=== PATIENT | female | born 1930 | race Caucasian/White ===

== ENCOUNTER 2016-04-06 07:15 | Day surgery (SDC) | payer MEDICARE, OTHER ==
[2016-04-06] MEDS ORDERED: KETOROLAC 0.45% OPHTH DROPS OPTH ONE (07:45)
[2016-04-06] MEDS ORDERED: CYCLOPENTOLATE 1% OPHTH DROPS 2 ML OPTH ONE (07:45)
[2016-04-06] MEDS ORDERED: TROPICAMIDE 1% OPHTH 2 ML DROPS OPTH ONE (07:45)
[2016-04-06] MEDS ORDERED: LACTATED RINGERS 500 ML IV ONE (07:47)
[2016-04-06] MEDS ORDERED: MIDAZOLAM 2 MG/2 ML VIAL IVP ONE (08:30)
[2016-04-06] MEDS ORDERED: CHONDR SULF/HYALURONATE SYRINGE IO ONE (08:33)
[2016-04-06] MEDS ORDERED: levoFLOXacin 0.5% OPHTH DROPS 5 ML OPTH ONE (08:33)
[2016-04-06] MEDS ORDERED: BSS/LIDOCAINE/EPINEPHRINE 1 ML SYRINGE IO ONE ×2 (08:33)
[2016-04-06] MEDS ORDERED: PROPARACAINE 0.5% OPHTH DROPS 15 ML OPTH ONE (08:33)
[2016-04-06] MEDS ORDERED: EPINEPHrine 1 MG/ML AMP IO ONE (08:33)
[2016-04-06] MEDS ORDERED: BRIMONIDINE 0.2% OPHTH DROPS 5 ML OPTH ONE (08:33)
[2016-04-06] MEDS ORDERED: NEOMYCIN/POLYMYX/DEXAMETH OPHTH OINT OPTH ONE (08:33)
== END 2016-04-06 07:16 | disposition home or self-care (01) ==
PROC: 08RJ3JZ Replacement of Right Lens with Synthetic Substitute, Percutaneous Approach (ICD-10-PCS; principal; 2016-04-06 08:25)
DX: H25.11 Age-related nuclear cataract, right eye (principal); I50.9 Heart failure, unspecified; I10 Essential (primary) hypertension; K21.9 Gastro-esophageal reflux disease without esophagitis
CPT/HCPCS: 66984; V2632

== ENCOUNTER 2016-04-27 06:19 | Day surgery (SDC) | payer MEDICARE, OTHER ==
[2016-04-27] MEDS ORDERED: PROPARACAINE 0.5% OPHTH DROPS 15 ML OPTH ONE ×2 (07:15→07:45)
[2016-04-27] MEDS ORDERED: EPINEPHrine 1 MG/ML AMP IO ONE ×2 (07:16→07:45)
[2016-04-27] MEDS ORDERED: NEOMYCIN/POLYMYX/DEXAMETH OPHTH OINT OPTH ONE ×2 (07:16→07:45)
[2016-04-27] MEDS ORDERED: BRIMONIDINE 0.2% OPHTH DROPS 5 ML OPTH ONE ×2 (07:16→07:45)
[2016-04-27] MEDS ORDERED: levoFLOXacin 0.5% OPHTH DROPS 5 ML LEFTEYE ONE ×2 (07:17→07:45)
[2016-04-27] MEDS ORDERED: BSS/LIDOCAINE/EPINEPHRINE 1 ML SYRINGE IO ONE ×2 (07:18→07:45)
[2016-04-27] MEDS ORDERED: CHONDR SULF/HYALURONATE SYRINGE IO ONE ×2 (07:18→07:45)
[2016-04-27] MEDS ORDERED: LACTATED RINGERS 1,000 ML IV ONE (07:29)
[2016-04-27] MEDS ORDERED: LIDOCAINE-MPF 2% 5 ML VIAL IM ONE (07:45)
[2016-04-27] MEDS ORDERED: PROPOFOL 200 MG/20 ML VIAL IVP ONE (07:45)
[2016-04-27] MEDS ORDERED: MIDAZOLAM 2 MG/2 ML VIAL IVP ONE (07:45)
== END 2016-04-27 06:20 | disposition home or self-care (01) ==
PROC: 08RK3JZ Replacement of Left Lens with Synthetic Substitute, Percutaneous Approach (ICD-10-PCS; principal; 2016-04-27 07:30)
DX: H25.12 Age-related nuclear cataract, left eye (principal); I10 Essential (primary) hypertension; E03.9 Hypothyroidism, unspecified; I48.91 Unspecified atrial fibrillation
CPT/HCPCS: 66984; J7120; V2632

== ENCOUNTER 2016-07-28 08:40 | Outpatient (CLI) | payer MEDICARE, OTHER ==
--- NOTE | 2016-07-29 10:50 | DEXA Report ---
DEXA SCAN: 07/28/2016 CLINICAL HISTORY: Postmenopausal with osteoporosis. TECHNIQUE: Dual energy x-ray absorptiometry (DXA) was performed on a [employer] system. Regions measured are the AP spine, femoral neck, and, if needed, forearm. COMPARISON: None. In accordance with the International Society for Clinical Densitometry (ISCD) guidelines, data from previous exams may be reanalyzed using current recommendations and techniques. This is done to allow a more accurate basis for comparison with the current study. FINDINGS: Minimal osteopenia is noted according to World Health Organization guidelines. The data for the lumbar spine is as follows: REGION BMD (g/cm/cm) T-SCORE Z-SCORE L1 1.015 -1.0 0.6 L2 1.182 -0.1 1.4 L3 1.382 1.5 3.1 L4 1.182 -0.2 1.4 TOTAL 1.199 0.2 1.7 NOTE: All evaluable vertebrae are used for classification. The data for the hip is as follows: REGION BMD (g/cm/cm) T-SCORE Z-SCORE Neck 0.937 -0.7 1.4 TOTAL 0.873 -1.1 1.0 NOTE: The femoral neck or total proximal femur, whichever is lowest, is used for classification. IMPRESSION: THE WHO CLASSIFICATION BASED ON THE INTERNATIONAL REFERENCE STANDARD IS MINIMAL OSTEOPENIA. THE FRACTURE RISK IS SLIGHTLY INCREASED. RECOMMENDATION: Patients with diagnosis of osteoporosis or osteopenia should have regular bone mineral density assessment. For those eligible for Medicare, routine testing is allowed once every 2 years. Testing frequency can be increased for patients who have rapidly progressing disease or for those who are receiving medical therapy to restore bone mass. COMMENT: World Health Organization (WHO) definitions for osteoporosis and osteopenia: NORMAL BMD: T-score at -1.0 or higher, fracture risk is low. OSTEOPENIA BMD: T-score between -1.0 and -2.5, fracture risk is increased. OSTEOPOROSIS BMD: T-score at -2.5 or lower, fracture risk high. National Osteoporosis Foundation recommends: 1. Obtain adequate dietary calcium (at least 1200 mg per day) and vitamin D (400 -800 international units per day). 2. Participate, as appropriate, in regular weightbearing and muscle- strengthening exercise. 3. Avoid tobacco use and reduce alcohol and caffeine intake. 4. For more detailed information see the website at www.NOF.org. MTDD
== END 2016-07-28 08:41 | disposition home or self-care (01) ==
LOC: DI 08:40
PROVIDERS: ATTEND Internal Medicine
DX: M85.88 Other specified disorders of bone density and structure, other site (principal)
CPT/HCPCS: 77080

== ENCOUNTER 2016-07-28 08:40 | Outpatient (CLI) | payer MEDICARE, OTHER ==
--- NOTE | 2016-08-02 16:54 | Mammography Report ---
DIGITAL SCREENING MAMMOGRAM: 07/28/2016 CLINICAL INDICATION: An 86-year-old for screening. COMPARISON: 06/2015, 02/2014, 10/2011, 10/2010, 09/2009, 09/2008, 07/2007. TECHNIQUE: Routine CC and MLO projections were obtained of the breasts. FINDINGS: The breasts again demonstrate scattered fibroglandular densities bilaterally. Small circu mscribed nodules in the right retroareolar breast are stable. A few punctate, typically benign calci fications are present. No suspicious masses, clustered microcalcifications, or regions of architectu ral distortion are identified. IMPRESSION: BENIGN FINDINGS. RECOMMENDATION: Routine annual screening unless otherwise clinically indicated. BI-RADS category 2, benign findings. STANDARD QUALIFYING STATEMENTS 1. This examination was reviewed with the aid of Computer-Aided Detection (CAD). 2. A negative or benign imaging report should not delay biopsy if clinically suspicious findings are present. Consider surgical consultation if warranted. More than 5% of cancers are not identified by i maging. 3. Dense breasts may obscure an underlying neoplasm. JOB #: [id number] EXT JOB #:[id number]
== END 2016-07-28 08:41 | disposition home or self-care (01) ==
LOC: DI 08:40
PROVIDERS: ATTEND Internal Medicine
DX: Z12.31 Encounter for screening mammogram for malignant neoplasm of breast (principal)
CPT/HCPCS: 77067

== ENCOUNTER 2016-11-03 14:15 | Outpatient (CLI) | payer MEDICARE, OTHER ==
--- NOTE | 2016-11-03 18:57 | XRAY Report ---
FOUR-VIEW LEFT WRIST: 11/03/2016 CLINICAL INDICATION: Sprain, pain. FINDINGS: AP, lateral, oblique, scaphoid views of the left wrist demonstrate moderate osteoarthritis , with chondrocalcinosis. There is sideplate and screw fixation of a previous fracture of the distal radial shaft. No acute fracture or dislocation is seen. No hardware complication is appreciated. IMPRESSION: OSTEOARTHRITIS. PREVIOUS ORIF. NO EVIDENCE OF ACUTE FRACTURE. JOB #: [id number] EXT JOB #:[id number]
--- NOTE | 2016-11-03 18:58 | XRAY Report ---
THREE-VIEW LEFT KNEE: 11/03/2016 CLINICAL INDICATION: Pain. FINDINGS: AP, lateral, sunrise views of the left knee demonstrate a left knee replacement in place. There is no evidence f acute fracture or dislocation. No hardware complication is evident. No effu haydee is seen. IMPRESSION: LEFT KNEE REPLACEMENT. NO EVIDENCE OF FRACTURE OR HARDWARE COMPLICATION. JOB #: [id number] EXT JOB #:[id number]
== END 2016-11-03 14:16 | disposition home or self-care (01) ==
LOC: DI.N 14:15
PROVIDERS: ATTEND Internal Medicine
DX: S83.92XA Sprain of unspecified site of left knee, initial encounter (principal); S63.502A Unspecified sprain of left wrist, initial encounter; Z96.652 Presence of left artificial knee joint; M19.032 Primary osteoarthritis, left wrist

== ENCOUNTER 2017-04-27 12:49 | Emergency (ER) | payer MEDICARE, OTHER ==
[2017-04-27 12:59] VITALS: BP 140/72
[2017-04-27] MEDS ORDERED: TETANUS/DIPHTHERIA/PERTUSSIS 0.5 ML SYRINGE IM ONE (13:10)
--- NOTE | 2017-04-27 13:11 | ED Physician Documentation ---
History of Present Illness - Stated complaint Stated Complaint: MOUTH LAC - Chief complaint Chief Complaint: Heent - History obtained from History obtained from: Patient - History of Present Illness Timing: Other (Slip and fall on the ice directly forward, she bit her lip and she has an abrasion on her nose and has a headache, no loose teeth, tetanus is unknown. She is anticoagulated.) Review of Systems Constitutional: reports: Reviewed and negative Nose: denies: Rhinorrhea / runny nose, Congestion Throat: reports: Dental pain / toothache. 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 - Present Medications Home Medications: Ambulatory Orders Medication Instructions Recorded Confirmed Alendronate [Fosamax] 70 mg PO Q7D 08/31/12 04/27/15 Atenolol 50 mg PO BID 08/31/12 04/27/16 Estradiol [Estrace] 1 mg PO DAILY 08/31/12 04/27/16 Levothyroxine [Synthroid] 75 mcg ORAL DAILY 08/31/12 04/27/16 Simvastatin [Zocor] 20 mg PO DAILY 08/31/12 04/27/16 Amlodipine Besylate 5 mg PO BID 06/20/13 04/27/15 Buspirone HCl 7.5 mg PO DAILY 06/20/13 04/27/15 PARoxetine [Paxil] 20 mg PO DAILY 06/20/13 04/27/16 Famotidine [Pepcid] 1 tab PO DAILY 04/27/15 04/27/16 Furosemide [Lasix] 1 tab PO DAILY 04/27/15 04/27/16 Montelukast [Singulair] 1 tab PO DAILY 04/27/15 04/27/16 Potassium Chloride 1 tab PO DAILY 04/27/15 04/27/16 Warfarin [Coumadin] 1 tab PO DAILY 04/27/15 04/27/16 Erythromycin Base [Erythromycin] 500 mg PO TID #9 tablet 04/27/17 - Allergies Allergies/Adverse Reactions: Allergies Allergy/AdvReac Type Severity Reaction Status Date / Time amoxicillin trihydrate * Allergy Severe Cramps Verified 04/27/17 12:59 [From Augmentin] potassium clavulanate * Allergy Severe Cramps Verified 04/27/17 12:59 [From Augmentin] - Social History Does the pt smoke?: No Smoking Status: Never smoker Does the pt drink ETOH?: No Does the pt have substance abuse?: No - Immunizations Immunizations are current?: Yes - POLST Patient has POLST: No PD ED PE NORMAL - Vitals Vital signs reviewed: Yes - General General: Alert and oriented X 3, No acute distress - HEENT HEENT: PERRL, EOMI, Other (She is a small laceration of the lower lip, both the outside and the inside, hard to say if it is through and through because it only measures a few millimeters in length. There are no loose teeth. 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 Eye Opening: Spontaneous Motor: Obeys Commands Verbal: Oriented GCS Score: 15 - Psych Psych: Normal mood, Normal affect Results - Vitals Vitals: Vital Signs - 24 hr 04/27/17 12:54 Temperature 36.2 C L Heart Rate 68 Respiratory 16 Rate Blood Pressure 140/72 H O2 Saturation 97 Oxygen O2 Source Room air - Labs Labs: Laboratory Tests 04/27/17 13:48 Whole Blood INR 3.2 H - Rads (name of study) CT HEad Radiology: EMP read contemporaneously (NAD) PD MEDICAL DECISION MAKING - ED course ED course: 86-year-old woman with low mechanism mechanical fall, she has an abrasion on the inner lip and the outer lip which might be a through and through but does not need specific intervention but I will put her on a couple days of antibiotics. Noting penicillin allergy. Tetanus was updated. She required only Tylenol for pain medication. Head CT was negative, INR was slightly supratherapeutic and was advised that she skip her dose tonight. Departure - Departure Disposition: 01 Home, Self Care Clinical Impression: Supratherapeutic INR Head injury Qualifiers: Encounter type: initial encounter Qualified Code(s): S09.90XA - Unspecified injury of head, initial encounter Condition: Good Record reviewed to determine appropriate education?: Yes Instructions: ED Head Injury Closed Prescriptions: Erythromycin Base [Erythromycin] 500 mg PO TID #9 tablet Comments: Skip your blood thinner tonight because her INR is 3.2. Get your level checked again on Monday as it may ride high while on antibiotics. Come back for any signs of infection which would include: Redness, swelling, drainage, increased pain, or fevers. Call your doctor to arrange a follow-up appointment, make the next available appointment. In the interim, return anytime if worse or if new symptoms develop. Your blood pressure was elevated today on check into the emergency department. This does not mean that you have hypertension, it is a common phenomenon to come to the emergency department and have elevated blood pressure. I recommend that you see your primary care physician within the week to have it rechecked when you are feeling better.
[2017-04-27] MEDS ORDERED: ACETAMINOPHEN 500 MG TABLET PO STA (13:28)
--- NOTE | 2017-04-27 13:49 | CT Report ---
EXAM: CT HEAD EXAM DATE: 04/27/2017 01:19 PM. CLINICAL HISTORY: Head inj, anticoagulated. COMPARISON: 07/23/2012. TECHNIQUE: Multiaxial CT images were obtained from the foramen magnum to the vertex. Reformats: Coron al. IV contrast: None. In accordance with CT protocol optimization, one or more of the following dose reduction techniques w ere utilized for this exam: automated exposure control, adjustment of mA and/or KV based on patient s ize, or use of iterative reconstructive technique. FINDINGS: Parenchyma: No intraparenchymal hemorrhage. No evidence of mass, midline shift, or CT findings of inf arction. Zamudio-white differentiation is distinct. Scattered patchy hypoattenuation in the cerebral whi te matter is most in keeping with chronic microvascular ischemia. Extraaxial Spaces: Normal for age. No subdural or epidural collections identified. Ventricles: Normal in size and position. Sinuses and Orbits: Imaged paranasal sinuses, orbits, and mastoids show no significant abnormality. Bones: No evidence of fracture or calvarial defect. Other: None. IMPRESSION: No acute intracranial abnormality. [facility] Referring Provider Line: [phone] SITE ID: [id number]
== END 2017-04-27 14:13 | disposition home or self-care (01) ==
LOC: ED 12:49
DX: S09.90XA Unspecified injury of head, initial encounter (principal); W00.0XXA Fall on same level due to ice and snow, initial encounter; I11.0 Hypertensive heart disease with heart failure; I50.9 Heart failure, unspecified; E03.9 Hypothyroidism, unspecified; I48.91 Unspecified atrial fibrillation; Z23 Encounter for immunization; Z79.01 Long term (current) use of anticoagulants; Z96.659 Presence of unspecified artificial knee joint
CPT/HCPCS: 70450; 85610; 90471; 90715; 99283; A9270

== ENCOUNTER 2017-08-09 10:19 | Outpatient (CLI) | payer MEDICARE, OTHER ==
--- NOTE | 2017-08-09 17:04 | XRAY Report ---
BILATERAL HANDS: 08/09/2017 HISTORY: Hand pain. TECHNIQUE: Three views each hand. LEFT HAND: Findings: Generalized bony demineralization. Scattered minor degenerative changes of the finger interphalangeal joints. Old trauma versus accessory ossicle along the radial base fifth proximal phalanx. No acute fracture is seen. Mild early first metacarpocarpal degenerative change. Post-surgical changes distal left radius. IMPRESSION: SCATTERED DEGENERATIVE CHANGES LEFT HAND WITH POSSIBLE OLD TRAUMA LEFT FIFTH PROXIMAL PHALANX. NO ACUTE FINDING. RIGHT HAND: FINDINGS: Bony demineralization. Scattered minimal degenerative changes of the fingers and first metacarpocarpal degenerative change.. Calcification adjacent to the third greater than fifth metacarpophalangeal articulations, likely degenerative. No evidence of fracture or malalignment. IMPRESSION: DEGENERATIVE CHANGES RIGHT HAND WITHOUT SUPERIMPOSED ACUTE FINDINGS. TD: 08/09/2017 15:21 DAQUAN
--- NOTE | 2017-08-09 17:07 | XRAY Report ---
BILATERAL WRISTS: 08/09/2017 HISTORY: Pain. COMPARISON: Left wrist 11/03/2016. TECHNIQUE: Four views each wrist. FINDINGS LEFT WRIST: Status post ORIF left radius. Degenerative change first left metacarpocarpal, triscaphe, and radiocarpal articulations. Scattered chondrocalcinosis is present. Overall, the findings have not changed compared with 11/03/2016. IMPRESSION: STABLE LEFT WRIST DEGENERATIVE CHANGES COMPARED WITH 11/03/2016. NO SUPERIMPOSED ACUTE FINDINGS. REMOTE DISTAL LEFT RADIUS ORIF. FINDINGS RIGHT WRIST: There is degenerative change at the first metacarpocarpal, triscaphe, and radiocarpal joints. There is widening of the scapholunate distance consistent with ligamentous disruption. No acute fracture or other finding. IMPRESSION: DEGENERATIVE CHANGE RIGHT WRIST. EVIDENCE OF SCAPHOLUNATE JOINT SPACE WIDENING CONSISTENT WITH LIGAMENTOUS DISRUPTION. NO SUPERIMPOSED ACUTE FINDINGS. TD: 08/09/2017 15:25 [facility]
== END 2017-08-09 10:20 | disposition home or self-care (01) ==
LOC: DI.N 10:19
PROVIDERS: ATTEND Internal Medicine
DX: M19.042 Primary osteoarthritis, left hand (principal); M19.041 Primary osteoarthritis, right hand

== ENCOUNTER 2018-03-04 08:46 | Observation (INO) | payer MEDICARE, OTHER ==
[2018-03-04] MEDS ORDERED: ONDANSETRON 4 MG/2 ML VIAL IVP STA (09:21)
[2018-03-04 09:28] LABS: BASOPHILS % (AUTO) 0.5 %; EOSINOPHILS # (AUTO) 0.3 10^3/uL (0.0-0.7); EOSINOPHILS % (AUTO) 3.3 %; HGB - HEMOGLOBIN 13.1 g/dL (12.0-16.0); LYMPHOCYTES # (AUTO) 0.8 10^3/uL (1.5-3.5); LYMPHOCYTES % (AUTO) 8.3 %; MEAN CORPUSCULAR HEMOGLOBIN 30.8 pg (27.0-31.0); MEAN CORPUSCULAR HGB CONC 35.2 g/dL (32.0-36.0); MEAN CORPUSCULAR VOLUME 87.3 fL (81.0-99.0); MEAN PLATELET VOLUME 7.2 fL (7.9-10.8); MONOCYTES # (AUTO) 0.8 10^3/uL (0.0-1.0); MONOCYTES % (AUTO) 8.3 %; NEUTROPHILS # (AUTO) 7.4 10^3/uL (1.5-6.6); NEUTROPHILS % (AUTO) 79.6 %; PLT - PLATELET COUNT 220 10^3/uL (130-450); RED BLOOD COUNT 4.26 10^6/uL (4.20-5.40); RED CELL DISTRIBUTION WIDTH 13.8 % (12.0-15.0); WHITE BLOOD COUNT 9.3 x10^3/uL (4.8-10.8)
[2018-03-04 09:30] LABS: BILIRUBIN,URINE NEGATIVE (NEGATIVE); GLUCOSE, URINE (UA) NEGATIVE (NEGATIVE); KETONES,URINE (UA) NEGATIVE (NEGATIVE); LEUKOCYTE ESTERASE, URINE SMALL (NEGATIVE); NITRITE,URINE NEGATIVE (NEGATIVE); OCCULT BLOOD,URINE SMALL (NEGATIVE); PROTEIN,URINE NEGATIVE (NEGATIVE); UROBILINOGEN,URINE 1 (NORMAL) E.U./dL (NORMAL)
[2018-03-04 09:32] LABS: CLARITY,URINE HAZY (CLEAR)
[2018-03-04] MEDS ORDERED: MORPHINE 2 MG/ML CARPUJECT IVP STA (09:33)
[2018-03-04 09:35] LABS: BACTERIA,URINE Few /HPF (None Seen); RBC,URINE 0-5 /HPF (0-5); SQUAMOUS EPITHELIAL CELL,UR MOD Squamous (<= Few)
[2018-03-04 09:39] LABS: ALBUMIN 3.8 g/dL (3.2-5.5); ALBUMIN/GLOBULIN RATIO 1.3 (1.0-2.2); CALCIUM 8.8 mg/dL (8.5-10.3); CREATININE 0.9 mg/dL (0.4-1.0); TOTAL PROTEIN 6.8 g/dL (6.7-8.2)
--- NOTE | 2018-03-04 10:15 | XRAY Report ---
Reason: chest pain Procedure Date: 03/04/2018 Accession Number: [id number] / [id number] Procedure: XR - Chest 1 View X-Ray CPT Code: 70439 FULL RESULT: EXAM: CHEST RADIOGRAPHY EXAM DATE: 03/04/2018 09:31 AM. CLINICAL HISTORY: Chest pain. Cough. COMPARISON: 06/18/2015. TECHNIQUE: 1 view. FINDINGS: Lungs/Pleura: Diffuse interval increase in vascular and interstitial prominence with hazy increased right perihilar greater than left perihilar airspace opacity. No dense consolidation. No pleural effusion. No pneumothorax. Apical pleural thickening bilaterally. No mass. Mediastinum: Cardiomegaly with calcified atherosclerosis. Other: None. IMPRESSION: 1. Cardiomegaly and findings suspicious for pulmonary edema. 2. No other significant interval change compared to prior study. [facility]
[2018-03-04] MEDS ORDERED: POTASSIUM CHLOR 10 MEQ/100 ML 10 MEQ/100 ML BAG IV ONE (10:39)
[2018-03-04] MEDS ORDERED: POTASSIUM CHLORIDE 20 MEQ TABLET PO STA (10:39)
[2018-03-04] MEDS ORDERED: FUROSEMIDE 40 MG/4 ML VIAL IVP STA (10:40)
--- NOTE | 2018-03-04 11:20 | ED Physician Documentation ---
PD HPI NVD - Stated complaint Stated Complaint: FLU LIKE SX - Chief complaint Chief Complaint: Abd Pain - History obtained from History obtained from: Patient - History of Present Illness Timing - onset: How many days ago (3) Timing - duration: Days (3) Timing - details: Gradual onset, Intermittant Pain level max: 0 Pain level now: 0 Associated symptoms: No: Fever, Abdominal pain, Chest pain, Hematemesis, Melena, Hematochezia, Dizzy, Near syncope / syncope, Loss of appetite, Weight loss, Dysuria, Hematuria Contributing factors: No: Sick contact, Bad food, Travel, Recent antibiotics, Alcohol use, Anticoagulated, Diabetes Improved by: Other (nothing) Worsened by: Eating Similar symptoms before: Has not had sx before Recently seen: Not recently seen - Additonal information Additional information: 87-year-old female with history of CHF, hypertension, atrial fib On Coumadin, hypothyroid, GERD, arthritis here with complaint of nausea and vomiting the past 3 days. Denies any associated abdominal pain, chest pain or fever. Stated had a bowel movement yesterday. She has been trying to drink or eat but somehow when she tries she would just vomit whatever she eats or drinks. Denies any new medications, travel, sick contact or trauma. States lives in the [facility] Review of Systems Ten Systems: 10 systems reviewed and negative Constitutional: denies: Fever, Chills, Myalgias Throat: denies: Sore throat Cardiac: denies: Chest pain / pressure Respiratory: denies: Dyspnea, Cough GI: reports: Nausea, Vomiting. denies: Abdominal Pain, Abdominal Swelling, Constipation, Diarrhea, Hematemesis, Bloody / black stool : reports: Incontinent. 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 - Present Medications Home Medications: Ambulatory Orders Medication Instructions Recorded Confirmed Alendronate [Fosamax] 70 mg PO Q7D 08/31/12 04/27/15 Estradiol [Estrace] 1 mg PO DAILY 08/31/12 04/27/16 RX: Atenolol 50 mg PO BID 08/31/12 04/27/16 RX: Levothyroxine [Synthroid] 75 mcg ORAL DAILY 08/31/12 04/27/16 Simvastatin [Zocor] 20 mg PO DAILY 08/31/12 04/27/16 PARoxetine [Paxil] 20 mg PO DAILY 06/20/13 04/27/16 RX: Amlodipine Besylate 5 mg PO BID 06/20/13 04/27/15 RX: Buspirone HCl 7.5 mg PO DAILY 06/20/13 04/27/15 Famotidine [Pepcid] 1 tab PO DAILY 04/27/15 04/27/16 Furosemide [Lasix] 1 tab PO DAILY 04/27/15 04/27/16 Montelukast [Singulair] 1 tab PO DAILY 04/27/15 04/27/16 RX: Potassium Chloride 1 tab PO DAILY 04/27/15 04/27/16 RX: Warfarin [Coumadin] 1 tab PO DAILY 04/27/15 04/27/16 Erythromycin Base [Erythromycin] 500 mg PO TID #9 tablet 04/27/17 - Allergies Allergies/Adverse Reactions: Allergies Allergy/AdvReac Type Severity Reaction Status Date / Time amoxicillin trihydrate * Allergy Severe Cramps Verified 03/04/18 08:54 [From Augmentin] potassium clavulanate * Allergy Severe Cramps Verified 03/04/18 08:54 [From Augmentin] - Social History Does the pt smoke?: No Smoking Status: Never smoker Does the pt drink ETOH?: No Does the pt have substance abuse?: No - Immunizations Immunizations are current?: Yes - POLST Patient has POLST: No PD ED PE NORMAL - Vitals Vital signs reviewed: Yes - General General: Alert and oriented X 3, No acute distress, Well developed/nourished - HEENT HEENT: Pharynx benign, Other (Dry tongue) - Neck Neck: Supple, no meningeal sign - Cardiac Cardiac: No murmur, Strong equal pulses, Other (Irregular) - Respiratory Respiratory: No respiratory distress, Other (Few rales in the bases) - Abdomen Abdomen: Normal bowel sounds, Soft, Non tender, Non distended, No organomegaly - Back Back: No CVA TTP - Derm Derm: Normal color, Warm and dry - Extremities Extremities: No deformity, No tenderness to palpate, Normal ROM s pain, No calf tenderness / cord, Other (Trace pitting edema of both legs) - Neuro Neuro: Alert and oriented X 3, No motor deficit, Normal speech - Psych Psych: Normal mood, Normal affect Results - Vitals Vitals: Vital Signs - 24 hr 03/04/18 03/04/18 08:51 11:15 Temperature 36.8 C Heart Rate 79 70 Respiratory 16 16 Rate Blood Pressure 126/67 134/75 H O2 Saturation 96 96 Oxygen O2 Source Room air - EKG (time done) 1018 Rate: Rate (enter#) (77 ) Rhythm: Atrial fibrillation Hale: LAD QRS: LVH Ischemia: Non specific changes Compare to prior EKG: Unchanged from prior EKG (10/04/12 ) - Labs Labs: Laboratory Tests 03/04/18 03/04/18 03/04/18 09:00 09:20 09:20 WBC 9.3 RBC 4.26 Hgb 13.1 Hct 37.2 MCV 87.3 MCH 30.8 MCHC 35.2 RDW 13.8 Plt Count 220 MPV 7.2 L Neut # (Auto) 7.4 H Lymph # (Auto) 0.8 L [place] # (Auto) 0.8 Eos # (Auto) 0.3 Baso # (Auto) 0.0 Absolute Nucleated RBC 0.00 Nucleated RBC % 0.0 PT INR Sodium 139 Potassium 2.7 L Chloride 104 Carbon Dioxide 26 Anion Gap 9.0 BUN 18 Creatinine 0.9 Estimated GFR (MDRD) 59 L Glucose 123 H Calcium 8.8 Magnesium Total Bilirubin 1.0 AST 25 ALT 16 Alkaline Phosphatase 61 Troponin I B-Natriuretic Peptide Total Protein 6.8 Albumin 3.8 Globulin 3.0 Albumin/Globulin Ratio 1.3 Lipase 22 Urine Color YELLOW Urine Clarity HAZY Urine pH 7.0 Ur Specific [place] 1.020 Urine Protein NEGATIVE Urine Glucose (UA) NEGATIVE Urine Ketones NEGATIVE Urine Occult Blood SMALL H Urine Nitrite NEGATIVE Urine Bilirubin NEGATIVE Urine Urobilinogen 1 (NORMAL) Ur Leukocyte Esterase SMALL H Urine RBC 0-5 Urine WBC 6-10 H Ur Squamous Epith Cells MOD Squamous H Urine Bacteria Few Ur Microscopic Review INDICATED Urine Culture Comments NOT INDICATED 03/04/18 03/04/18 03/04/18 09:20 09:20 09:20 WBC RBC Hgb Hct MCV MCH MCHC RDW Plt Count MPV Neut # (Auto) Lymph # (Auto) [place] # (Auto) Eos # (Auto) Baso # (Auto) Absolute Nucleated RBC Nucleated RBC % PT INR Sodium Potassium Chloride Carbon Dioxide Anion Gap BUN Creatinine Estimated GFR (MDRD) Glucose Calcium Magnesium 2.0 Total Bilirubin AST ALT Alkaline Phosphatase Troponin I < 0.04 B-Natriuretic Peptide 331 H Total Protein Albumin Globulin Albumin/Globulin Ratio Lipase Urine Color Urine Clarity Urine pH Ur Specific [place] Urine Protein Urine Glucose (UA) Urine Ketones Urine Occult Blood Urine Nitrite Urine Bilirubin Urine Urobilinogen Ur Leukocyte Esterase Urine RBC Urine WBC Ur Squamous Epith Cells Urine Bacteria Ur Microscopic Review Urine Culture Comments 03/04/18 09:20 WBC RBC Hgb Hct MCV MCH MCHC RDW Plt Count MPV Neut # (Auto) Lymph # (Auto) [place] # (Auto) Eos # (Auto) Baso # (Auto) Absolute Nucleated RBC Nucleated RBC % PT 19.5 H INR 1.8 H Sodium Potassium Chloride Carbon Dioxide Anion Gap BUN Creatinine Estimated GFR (MDRD) Glucose Calcium Magnesium Total Bilirubin AST ALT Alkaline Phosphatase Troponin I B-Natriuretic Peptide Total Protein Albumin Globulin Albumin/Globulin Ratio Lipase Urine Color Urine Clarity Urine pH Ur Specific [place] Urine Protein Urine Glucose (UA) Urine Ketones Urine Occult Blood Urine Nitrite Urine Bilirubin Urine Urobilinogen Ur Leukocyte Esterase Urine RBC Urine WBC Ur Squamous Epith Cells Urine Bacteria Ur Microscopic Review Urine Culture Comments PD MEDICAL DECISION MAKING - ED course Complexity details: reviewed results, re-evaluated patient, considered differential (Gastroenteritis, GERD, atypical ACS, pneumonia, CHF, bowel obstruction, dehydration, electrolyte imbalance), d/w patient, d/w family, d/w PMD ED course: 1022 patient inform of lab results and chest x-ray. Patient was unable to tolerate oral fluids when given water to drink. Patient wants to know if we can get an x-ray of her abdomen. Patient and daughter at the bedside informed that we will be ordering a CT of her abdomen. She also agreed to a CT scan and admission. 1310 patient sleeping soundly. Son at the bedside and would like the patient to get some rest so I did not wake her up. I updated the son about test results and admission. 1316 Case discussed with hospitalist Dr. Ramírez who will admit the patient for observation.[id number] patient woke up from her nap and interested in hearing the CT abdominal scan result. Inform her about the new findings on her liver. Patient stated she would like this investigated. Patient is now requesting to drink apple juice as she is feeling hungry. Departure - Departure Disposition: ED Place in Observation Clinical Impression: Hypokalemia Vomiting Qualifiers: Vomiting type: unspecified Vomiting Intractability: unspecified Nausea presence: with nausea Qualified Code(s): R11.2 - Nausea with vomiting, unspecified CHF (congestive heart failure) Qualifiers: Heart failure type: unspecified Condition: Stable Discharge Date/Time: 03/04/18 14:08
[2018-03-04] MEDS ORDERED: IOVERSOL 320 100 ML VIAL IVP ONE ×2 (11:25→12:06)
--- NOTE | 2018-03-04 13:01 | CT Report ---
Reason: vomiting Procedure Date: 03/04/2018 Accession Number: [id number] / [id number] Procedure: CT - Abdomen/Pelvis W/ CPT Code: FULL RESULT: EXAM: CT ABDOMEN AND PELVIS EXAM DATE: 03/04/2018 12:01 PM. CLINICAL HISTORY: Vomiting. COMPARISONS: ABDOMEN/PELVIS W/ 10/04/2012 6:40 PM. TECHNIQUE: Routine helical CT imaging was performed through the abdomen and pelvis. IV contrast: OPTI 320 100mL. Enteric contrast: No. Reconstructions: Coronal and sagittal. In accordance with CT protocol optimization, one or more of the following dose reduction techniques were utilized for this exam: automated exposure control, adjustment of mA and/or KV based on patient size, or use of iterative reconstructive technique. FINDINGS: Lung Bases: There are small bilateral pleural effusions with adjacent atelectasis. Liver: There is an area of enhancement in segment 8 of the liver on series 5 image 29 measuring approximately 2.4 x 1.5 cm. There is a 0.6 cm low-density lesion in segment 3 series 3 image 16, decreased in size from 1.9 cm. There is a stable 0.8 cm low-density lesion in the right hepatic lobe on series 3 image 14. Gallbladder/Bile Ducts: Absent gallbladder. Stable appearance of the extrahepatic bile duct. Spleen: Normal. Pancreas: Normal. Adrenal Glands: Normal. Kidneys: There is cortical thinning bilaterally. Negative for hydronephrosis. Stable lower pole left renal cortical cystic lesion. Peritoneal Cavity/Bowel: Normal. No free fluid, free air or adenopathy. No masses or acute inflammatory process. The appendix is not clearly visualized. Pelvic Organs: Urinary bladder shows no focal wall thickening. The uterus appears absent. Vasculature: There is atherosclerotic calcification in the aorta and iliac arteries without aneurysm. Bones: No significant abnormality. There is an old healed fracture deformity of the left posterior 12th rib. Other: No pathologic adenopathy. No drainable collections. IMPRESSION: 1. There are small bilateral pleural effusions with adjacent atelectasis. 2. There is an area of enhancement in the right liver which is new compared to the prior exam, uncertain etiology but unlikely to explain the patient's symptoms. 3. Other incidental findings described above. RADIA
[2018-03-04] MEDS ORDERED: PROCHLORPERAZINE 10 MG/2 ML VIAL IVP PRN (13:24)
[2018-03-04] MEDS ORDERED: SODIUM CHLORIDE FLUSH 0.9% 10 ML SYRINGE IVP PRN (13:24)
[2018-03-04] MEDS ORDERED: ACETAMINOPHEN 325 MG TABLET PO PRN (13:24)
[2018-03-04] MEDS ORDERED: PROMETHAZINE 25 MG/1 ML VIAL IM PRN (13:24)
[2018-03-04] MEDS ORDERED: MORPHINE 2 MG/ML CARPUJECT IVP PRN (13:24)
[2018-03-04] MEDS ORDERED: ZOLPIDEM 5 MG TABLET PO PRN (13:24)
[2018-03-04] MEDS ORDERED: ONDANSETRON 4 MG/2 ML VIAL IVP PRN (13:24)
[2018-03-04] MEDS ORDERED: oxyCODONE 5 MG TABLET PO PRN ×2 (13:24)
[2018-03-04] MEDS ORDERED: POTASSIUM CHLOR 10 MEQ/100 ML 10 MEQ/100 ML BAG IV STA (13:27)
--- NOTE | 2018-03-04 13:52 | HISTORY & PHYSICAL EXAMINATION ---
Chief Complaint - Chief Complaint Chief Complaint: Nausea and vomiting History of Present Illness - Admitted From Admitted From:: Emergency Department - History Obtained From Records Reviewed: Yes History obtained from: Patient Exam Limitations: None - History of Present Illness HPI Comment/Other: Patient is a very pleasant 87-year-old female who is hard of hearing, has history of chronic atrial fibrillation on Coumadin, hypertension, hypothyroidism, congestive heart failure with most recent echocardiogram in our system from 2014 which shows a normal ejection fraction, hyperlipidemia, osteoporosis and depression who presented to the emergency department with a chief complaint of nausea and vomiting. The patient states that her symptoms first started about 3 days ago. She states that initially her symptoms started with a feeling of bloating and gas in her abdomen. She states that she had some mild discomfort in the right lower quadrant and then had some loose stools. The patient states that she had no further loose stools or diarrhea but then became nauseated. She states that she is not really been able to keep anything down the last 2 days because of nausea and vomiting. She states that she has been drinking plenty of fluid but has not been able to eat anything solid. She states that she did try to have some soup last night but vomited that up. She denies any fevers or chills. She denies any sick contacts. She denies eating any spoiled food. Aside from the discomfort in her right lower quadrant she states that she is not really have any abdominal pain. She does admit to continued bloating and gas. She denies any black or bloody stools. She denies any hematemesis. She states that along with not being able to eat the last few day she is also feeling weak. She did state that she noticed that yesterday evening she was a little short of breath when walking around. She denies any P ND, orthopnea or increased lower extremity swelling. Patient denies any headaches, blurred vision, runny nose, sore throat, nasal congestion, difficulty swallowing, chest pain, palpitations, dysuria, increased urinary urgency, increased urinary frequency, polyuria, polydipsia, constipation, muscle aches, joint pains, joint swelling, back pain, neck stiffness, recent unintentional weight loss, dizziness, lightheadedness, night sweats or any focal neurologic deficits. On presentation to the emergency department the patient was afebrile and vital signs were all within normal limits. The patient underwent routine lab work which did reveal a mild lymphopenia, significant hypokalemia with a potassium of 2.7, negative troponin, BNP of 331 and a mildly elevated glucose of 123. The patient's urine analysis had moderate squamous cells and was not a very good sample. The patient did undergo imaging with a chest x-ray which revealed cardiomegaly and findings suspicious for pulmonary edema but no focal infiltrates. The patient also underwent a CT of her abdomen and pelvis which revealed small bilateral pleural effusions with adjacent atelectasis, enhancement in right liver compared to prior exam concerning for possible liver cysts. The emergency room physician gave the patient a dose of IV Lasix due to the possible pulmonary edema seen on chest x-ray and mildly elevated BNP. The patient was also given IV potassium replacement in the emergency department. The patient was trialed with some fluid in the emergency department but was nauseated and vomited. Given her inability to tolerate oral intake and continued nausea with hypokalemia the patient was placed in observation for f urther hydration and potassium replacement. History - Past Medical History Cardiovascular: reports: Congestive heart failure, Hypertension, High cholesterol, Atrial fibrillation, Other Respiratory: reports: Other (Allergies) Endocrine/Autoimmune: reports: HyPOthyroidism GI: reports: GERD, Other (Gastritis and esophagitis seen on EGD in 2013) : reports: None, Other HEENT: reports: Chronic vision loss, Chronic hearing loss Psych: reports: Depression, Anxiety Musculoskeletal: reports: Osteoarthritis, Osteoporosis Derm: reports: Other MRSA Hx?: No - Past Surgical History General: reports: Cholecystectomy, Appendectomy, Other Ortho: reports: Knee replacement, 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 Living arrangement: At home Living Situation: Alone Social History Notes: The patient lives alone at the [facility]. She is originally from [place] and moved to [facility] in [address]. She has 4 children including 3 sons who all live on [facility]. She has never smoked cigarettes, drank alcohol or used any illicit drugs. - POLST Patient has POLST: No POLST Status: DNR Meds/Allgy - Home Medications Home Medications: Ambulatory Orders Medication Instructions Recorded Confirmed Alendronate [Fosamax] 70 mg PO Q7D 08/31/12 04/27/15 Atenolol 50 mg PO BID 08/31/12 04/27/16 Estradiol [Estrace] 1 mg PO DAILY 08/31/12 04/27/16 Levothyroxine [Synthroid] 75 mcg ORAL DAILY 08/31/12 04/27/16 Simvastatin [Zocor] 20 mg PO DAILY 08/31/12 04/27/16 Amlodipine Besylate 5 mg PO BID 06/20/13 04/27/15 Buspirone HCl 7.5 mg PO DAILY 06/20/13 04/27/15 PARoxetine [Paxil] 20 mg PO DAILY 06/20/13 04/27/16 Famotidine [Pepcid] 1 tab PO DAILY 04/27/15 04/27/16 Furosemide [Lasix] 1 tab PO DAILY 04/27/15 04/27/16 Montelukast [Singulair] 1 tab PO DAILY 04/27/15 04/27/16 Potassium Chloride 1 tab PO DAILY 04/27/15 04/27/16 Warfarin [Coumadin] 1 tab PO DAILY 04/27/15 04/27/16 Erythromycin Base [Erythromycin] 500 mg PO TID #9 tablet 04/27/17 - Allergies Allergies/Adverse Reactions: Allergies Allergy/AdvReac Type Severity Reaction Status Date / Time amoxicillin trihydrate * Allergy Severe Cramps Verified 03/04/18 08:54 [From Augmentin] potassium clavulanate * Allergy Severe Cramps Verified 03/04/18 08:54 [From Augmentin] Review of Systems - Other Findings Other Findings: A comprehensive review of systems was performed the pertinent positives and negatives are stated above in the HPI and the remainder of the review of systems is negative. Prior Level of Functionality: Patient is completely independent with all her activities of daily living. She lives at [facility] independently. Exam - Vital Signs Reviewed Vital Signs: Yes Vital Signs: Vital Signs x48h Temp Pulse Resp BP Pulse Ox 03/04/18 11:15 70 16 134/75 H 96 03/04/18 08:51 36.8 C 79 16 126/67 96 - Physical Exam General Appearance: positive: No acute distress, Alert Eyes Bilateral: positive: Normal inspection, PERRL, EOMI, No lid inflammation, Conjunctivae nml, No scleral icterus ENT: positive: ENT inspection nml, Pharynx nml, Dry mucous membranes. negative: Purulent nasal drainage, Pharyngeal erythema, Oral lesions Neck: positive: Nml inspection, Thyroid nml, No JVD, Trachea midline. negative: Thyromegaly, Lymphadenopathy (R), Lymphadenopathy (L), Stiff neck, Carotid bruit, Tracheal deviation Respiratory: positive: Chest non-tender, No respiratory distress, Breath sounds nml. negative: Wheezes, Rales, Rhonchi Cardiovascular: positive: Regular rate & rhythm, No murmur, No gallop Peripheral Pulses: positive: 2+ Abdomen: positive: Non-tender, No organomegaly, Nml bowel sounds, No distention. negative: Guarding, Rebound, Hepatomegaly Back: positive: Nml inspection. negative: CVA tenderness (R), CVA tenderness (L) Skin: positive: Color nml, No rash, Warm, Dry. negative: Cyanosis, Diaphoresis, Pallor, Skin rash Extremities: positive: Non-tender, Full ROM, Nml appearance, No pedal edema Neurologic/Psychiatric: positive: Oriented x3, CN's nml (2-12), Motor nml, Sen sation nml, Mood/affect nml Conclusion/Plan - Problem List (1) Nausea and vomiting Conclusion/Plan: Patient has been having nausea and vomiting for 3 days with decreased oral intake, bloating and gas. The patient's symptoms first started with some right lower quadrant discomfort and diarrhea. It appears the patient likely has a viral gastroenteritis especially given her lymphopenia on differential. She has however not been around any sick contacts nor has she had any fevers. The patient has had an EGD in the past which has shown gastritis and esophagitis. The patient's symptoms do sound awful lot like dyspepsia. The patient did have a CT of her abdomen pelvis which did not show any obvious sources for her symptoms. Plan: IV fluids Antiemetics GI cocktail Pepcid Potassium replacement Monitor closely Qualifiers: Vomiting type: unspecified Vomiting Intractability: intractable Qualified Code(s): R11.2 - Nausea with vomiting, unspecified (2) Hypokalemia Conclusion/Plan: Patient presented with hypokalemia with a potassium of 2.7. This is likely secondary to nausea vomiting from possible gastroenteritis or gastritis over the last 3 days. The patient appeared to be dry on examination. Plan: Potassium replacement with IV potassium IV fluids Antiemetics Hold Lasix Monitor potassium (3) CHF (congestive heart failure) Conclusion/Plan: Given the patient's history of CHF we will need to be gentle with her hydration. We will start the patient with 100 mL's of fluid an hour as she does appear to be dry. We will monitor closely for fluid overload. The patient was given Lasix in the emergency department prior to being admitted. We will hold Lasix for now. We will get an echocardiogram in the morning to establish the severity of the patient's congestive heart failure. The patient's previous echo is from 2014 and on that echocardiogram the patient does not appear to have congestive heart failure. It is possible that her CHF in the past may have been related to uncontrolled atrial fibrillation. We will monitor closely. Qualifiers: Heart failure type: unspecified (4) Atrial fibrillation Conclusion/Plan: The patient has a history of chronic atrial fibrillation and is on Coumadin. The patient's INR is 1.8 which is slightly subtherapeutic. The patient is on atenolol for rate control. Patient will be continued on her home dose of atenolol We will continue the patient on Coumadin We will monitor INR Qualifiers: Atrial fibrillation type: chronic Qualified Code(s): I48.2 - Chronic atrial fibrillation (5) Hypertension Conclusion/Plan: Patient has a history of hypertension and is on a number of antihypertensive medications including atenolol, amlodipine and Lasix. We will continue the patient's home dose of antihypertensives but we will hold Lasix given that she is coming in with nausea vomiting and appears dehydrated with low potassium We will monitor patient's blood pressure and titrate medications as needed. Qualifiers: Hypertension type: essential hypertension Qualified Code(s): I10 - Essential (primary) hypertension (6) Hypothyroidism Conclusion/Plan: The patient has a history of hypothyroidism. She appears to be stable from the standpoint of hypothyroidism at this point. We will check a TSH in the morning and we will continue her home dose of Synthroid. (7) Hyperlipidemia Conclusion/Plan: The patient has a history of hyperlipidemia and is on Zocor at home. Patient will be continued on Zocor (8) Depression Conclusion/Plan: The patient has a history of depression and is on Paxil and risperidone at home. We will continue the patient's home dose of Paxil and buspirone. The patient's mood appears to be stable at this time. Qualifiers: Depression Type: unspecified Qualified Code(s): F32.9 - Major depressive disorder, single episode, unspecified - Lab Results Lab results reviewed: Yes Fish Bones: 03/04/18 09:20 03/04/18 09:20 Other Lab Results: Laboratory Results WBC 9.3 x10^3/uL (4.8-10.8) 03/04/18 09:20 RBC 4.26 10^6/uL (4.20-5.40) 03/04/18 09:20 Hgb 13.1 g/dL (12.0-16.0) 03/04/18 09:20 Hct 37.2 % (37.0-47.0) 03/04/18 09:20 MCV 87.3 fL (81.0-99.0) 03/04/18 09:20 MCH 30.8 pg (27.0-31.0) 03/04/18 09:20 MCHC 35.2 g/dL (32.0-36.0) 03/04/18 09:20 RDW 13.8 % (12.0-15.0) 03/04/18 09:20 Plt Count 220 10^3/uL (130-450) 03/04/18 09:20 MPV 7.2 fL (7.9-10.8) L 03/04/18 09:20 Neut # (Auto) 7.4 10^3/uL (1.5-6.6) H 03/04/18 09:20 Lymph # (Auto) 0.8 10^3/uL (1.5-3.5) L 03/04/18 09:20 [place] # (Auto) 0.8 10^3/uL (0.0-1.0) 03/04/18 09:20 Eos # (Auto) 0.3 10^3/uL (0.0-0.7) 03/04/18 09:20 Baso # (Auto) 0.0 10^3/uL (0.0-0.1) 03/04/18 09:20 Absolute Nucleated RBC 0.00 x10^3/uL 03/04/18 09:20 Nucleated RBC % 0.0 /100WBC 03/04/18 09:20 PT 19.5 secs (9.9-12.6) H 03/04/18 09:20 INR 1.8 (0.8-1.2) H 03/04/18 09:20 Sodium 139 mmol/L (135-145) 03/04/18 09:20 Potassium 2.7 mmol/L (3.5-5.0) L 03/04/18 09:20 Chloride 104 mmol/L (101-111) 03/04/18 09:20 Carbon Dioxide 26 mmol/L (21-32) 03/04/18 09:20 Anion Gap 9.0 (6-13) 03/04/18 09:20 BUN 18 mg/dL (6-20) 03/04/18 09:20 Creatinine 0.9 mg/dL (0.4-1.0) 03/04/18 09:20 Estimated GFR (MDRD) 59 (>89) L 03/04/18 09:20 Glucose 123 mg/dL (70-100) H 03/04/18 09:20 Calcium 8.8 mg/dL (8.5-10.3) 03/04/18 09:20 Magnesium 2.0 mg/dL (1.7-2.8) 03/04/18 09:20 Total Bilirubin 1.0 mg/dL (0.2-1.0) 03/04/18 09:20 AST 25 IU/L (10-42) 03/04/18 09:20 ALT 16 IU/L (10-60) 03/04/18 09:20 Alkaline Phosphatase 61 IU/L (42-121) 03/04/18 09:20 Troponin I < 0.04 ng/mL (<0.49) 03/04/18 09:20 B-Natriuretic Peptide 331 pg/mL (5-100) H 03/04/18 09:20 Total Protein 6.8 g/dL (6.7-8.2) 03/04/18 09:20 Albumin 3.8 g/dL (3.2-5.5) 03/04/18 09:20 Globulin 3.0 g/dL (2.1-4.2) 03/04/18 09:20 Albumin/Globulin Ratio 1.3 (1.0-2.2) 03/04/18 09:20 Lipase 22 U/L (22-51) 03/04/18 09:20 Urine Color YELLOW 03/04/18 09:00 Urine Clarity HAZY (CLEAR) 03/04/18 09:00 Urine pH 7.0 PH (5.0-7.5) 03/04/18 09:00 Ur Specific [place] 1.020 (1.002-1.030) 03/04/18 09:00 Urine Protein NEGATIVE mg/dL (NEGATIVE) 03/04/18 09:00 Urine Glucose (UA) NEGATIVE mg/dL (NEGATIVE) 03/04/18 09:00 Urine Ketones NEGATIVE mg/dL (NEGATIVE) 03/04/18 09:00 Urine Occult Blood SMALL (NEGATIVE) H 03/04/18 09:00 Urine Nitrite NEGATIVE (NEGATIVE) 03/04/18 09:00 Urine Bilirubin NEGATIVE (NEGATIVE) 03/04/18 09:00 Urine Urobilinogen 1 (NORMAL) E.U./dL (NORMAL) 03/04/18 09:00 Ur Leukocyte Esterase SMALL (NEGATIVE) H 03/04/18 09:00 Urine RBC 0-5 /HPF (0-5) 03/04/18 09:00 Urine WBC 6-10 /HPF (0-5) H 03/04/18 09:00 Ur Squamous Epith Cells MOD Squamous (<= Few) H 03/04/18 09:00 Urine Bacteria Few /HPF (None Seen) 03/04/18 09:00 Ur Microscopic Review INDICATED 03/04/18 09:00 Urine Culture Comments NOT INDICATED 03/04/18 09:00 - Diagnostic Imaging Results Diagnostic Imaging Results: positive: Final report reviewed Diagnostic Imaging Results Comments: Chest x-ray Impression: 1. Cardiomegaly and findings suspicious for pulmonary edema. 2. No other significant interval change compared to prior study. CT abdomen/pelvis Impression: 1. There are small bilateral pleural effusions with adjacent atelectasis. 2. There is an area of enhancement in the right liver which is new compared to the prior exam, uncertain etiology but unlikely to explain the patient's symptoms. 3. Other incidental findings described above. - EKG Results EKG Interpreted Independently: Yes EKG Findings: Atrial fibrillation with no ST elevations or acute ischemic changes. Core Measures - Anticipated LOS I expect patient to be DC'd or transferred within 96 hours.: Yes - DVT/VTE - Prophylaxis VTE/DVT Device ordered at admit?: Yes
[2018-03-04 13:53] LABS: INR 1.8 (0.8-1.2); PT - PROTHROMBIN TIME 19.5 secs (9.9-12.6)
[2018-03-04] MEDS: GI COCKTAIL 120 ML BOTTLE PO SCH ×2 (14:45→17:48)
[2018-03-04] MEDS: NS W/20 MEQ KCL 1,000 ML IV SCH (14:47)
[2018-03-04] MEDS: SODIUM CHLORIDE FLUSH 0.9% 10 ML SYRINGE IVP SCH (16:43)
[2018-03-04 20:04] LABS: BILIRUBIN,URINE NEGATIVE (NEGATIVE); GLUCOSE, URINE (UA) NEGATIVE (NEGATIVE); KETONES,URINE (UA) NEGATIVE (NEGATIVE); LEUKOCYTE ESTERASE, URINE NEGATIVE (NEGATIVE); NITRITE,URINE NEGATIVE (NEGATIVE); OCCULT BLOOD,URINE SMALL (NEGATIVE); PH,URINE 6.5 PH (5.0-7.5); PROTEIN,URINE NEGATIVE (NEGATIVE); UROBILINOGEN,URINE 0.2 (NORMAL) E.U./dL (NORMAL)
[2018-03-04 20:25] LABS: BACTERIA,URINE None Seen /HPF (None Seen); CLARITY,URINE CLEAR (CLEAR); RBC,URINE 0-5 /HPF (0-5); SQUAMOUS EPITHELIAL CELL,UR RARE Squamous (<= Few)
[2018-03-04] MEDS: FAMOTIDINE 20 MG TABLET PO SCH (20:27)
[2018-03-04] MEDS: amLODIPine 5 MG TABLET PO SCH (20:27)
[2018-03-04] MEDS: ATENOLOL 25 MG TABLET PO SCH (20:27)
[2018-03-04] MEDS ORDERED: MONTELUKAST 10 MG TABLET PO SCH (21:00)
[2018-03-04] MEDS ORDERED: ATORVASTATIN 10 MG TABLET PO SCH (21:00)
[2018-03-05] MEDS: GI COCKTAIL 120 ML BOTTLE PO SCH ×2 (00:32→05:58)
[2018-03-05] MEDS: NS W/20 MEQ KCL 1,000 ML IV SCH (00:40)
[2018-03-05] MEDS: SODIUM CHLORIDE FLUSH 0.9% 10 ML SYRINGE IVP SCH ×2 (02:28→08:28)
[2018-03-05 06:09] LABS: INR 2.1 (0.8-1.2); PT - PROTHROMBIN TIME 24.1 secs (9.9-12.6)
[2018-03-05 06:12] LABS: BASOPHILS % (AUTO) 0.7 %; EOSINOPHILS # (AUTO) 0.3 10^3/uL (0.0-0.7); EOSINOPHILS % (AUTO) 4.6 %; HGB - HEMOGLOBIN 12.5 g/dL (12.0-16.0); LYMPHOCYTES # (AUTO) 1.3 10^3/uL (1.5-3.5); LYMPHOCYTES % (AUTO) 20.5 %; MEAN CORPUSCULAR HEMOGLOBIN 30.1 pg (27.0-31.0); MEAN CORPUSCULAR HGB CONC 33.6 g/dL (32.0-36.0); MEAN CORPUSCULAR VOLUME 89.6 fL (81.0-99.0); MEAN PLATELET VOLUME 7.3 fL (7.9-10.8); MONOCYTES # (AUTO) 0.6 10^3/uL (0.0-1.0); MONOCYTES % (AUTO) 9.8 %; NEUTROPHILS # (AUTO) 4.2 10^3/uL (1.5-6.6); NEUTROPHILS % (AUTO) 64.4 %; PLT - PLATELET COUNT 227 10^3/uL (130-450); RED BLOOD COUNT 4.15 10^6/uL (4.20-5.40); RED CELL DISTRIBUTION WIDTH 13.8 % (12.0-15.0); WHITE BLOOD COUNT 6.6 x10^3/uL (4.8-10.8)
[2018-03-05 06:17] LABS: ALBUMIN 3.4 g/dL (3.2-5.5); ALBUMIN/GLOBULIN RATIO 1.3 (1.0-2.2); BILIRUBIN,TOTAL 0.5 mg/dL (0.2-1.0); CREATININE 0.9 mg/dL (0.4-1.0); MAGNESIUM 1.8 mg/dL (1.7-2.8); PHOSPHORUS 2.9 mg/dL (2.5-4.6)
[2018-03-05] MEDS ORDERED: LEVOTHYROXINE 75 MCG TABLET PO SCH (07:00)
[2018-03-05] MEDS ORDERED: CALCIUM GLUCONATE 2,000 MG in SODIUM CHLORIDE 0.9% 100ML 100 ML IV ONE (07:45)
[2018-03-05] MEDS ORDERED: POTASSIUM CHLOR 10 MEQ/100 ML 10 MEQ/100 ML BAG IV SCH (08:00)
[2018-03-05] MEDS: ATENOLOL 25 MG TABLET PO SCH (08:22)
[2018-03-05] MEDS: FAMOTIDINE 20 MG TABLET PO SCH (08:23)
[2018-03-05] MEDS: amLODIPine 5 MG TABLET PO SCH (08:23)
[2018-03-05] MEDS ORDERED: POTASSIUM CHLORIDE 20 MEQ TABLET PO STA (08:55)
[2018-03-05] MEDS ORDERED: PARoxetine 10 MG TABLET PO SCH (09:00)
[2018-03-05] MEDS ORDERED: WARFARIN 5 MG TABLET PO SCH (09:00)
[2018-03-05] MEDS ORDERED: busPIRone 5 MG TABLET PO SCH (09:00)
[2018-03-05] MEDS ORDERED: POLYETHYLENE GLYCOL 3350 17 GM PACKET PO SCH (09:00)
--- NOTE | 2018-03-05 09:28 | Discharge Plan ---
Discharge Plan Disposition: 01 Home, Self Care Condition: Stable Prescriptions: Ondansetron Odt [Zofran] 4 mg TL Q6H PRN #20 tablet PRN Reason: Nausea / Vomiting Diet: Regular Activity Restrictions: Activity as Tolerated Shower Restrictions: No Driving Restrictions: No Weight Bearing: Full Weight Additional Instructions or Follow Up instructions: You presented to the emergency department due to nausea and vomiting for the past 3 days. When you presented to the emergency department you appeared to be dehydrated and your potassium was low. We gave you potassium replacement and IV fluids. We also gave you antinausea medication. You had significant improvement overnight and were able to eat a complete breakfast without nausea. He will now be able to discharge home. I am prescribing you a medication for nausea in case you needed. I do encourage that you take Pepcid as I believe that you likely had some gastritis and possibly some gastroenteritis. You did undergo a CT of your abdomen and pelvis while you were here and it did show some liver lesions which are concerning for liver cysts but did not explain your symptoms. Please continue to take your chronic medications. No Smoking: If you smoke, Please STOP! Call for help. Follow-up with: Kameron Land MD [Primary Care Provider] -
--- NOTE | 2018-03-05 11:35 | DISCHARGE SUMMARY ---
Discharge Summary Admit Date: 03/04/18 Discharge Date: 03/05/18 Discharging Provider: Joseph Ramírez MD Primary Care Provider: Kameron Land MD Code Status: Do Not Attempt Resuscitation Condition at Discharge: Stable Discharge Disposition: 01 Home, Self Care - DIAGNOSES Admission Diagnoses: 1. Nausea and vomiting 2. Hypokalemia 3. Congestive heart failure 4. Atrial fibrillation 5. Hypertension 6. Hypothyroidism 7. Hyperlipidemia 8. Depression Discharge Diagnoses with Status of Each Condition: 1. Gastritis: Improved 2. Hypokalemia: Improved 3. Congestive heart failure: Stable 4. Atrial fibrillation: Stable 5. Hypertension: Stable 6. Hypothyroidism: Stable 7. Hyperlipidemia: Stable 8. Depression: Stable - HPI History of Present Illness: Patient is a very pleasant 87-year-old female who is hard of hearing, has history of chronic atrial fibrillation on Coumadin, hypertension, hypothyroidism, congestive heart failure with most recent echocardiogram in our system from 2014 which shows a normal ejection fraction, hyperlipidemia, osteoporosis and depression who presented to the emergency department with a chief complaint of nausea and vomiting. The patient states that her symptoms first started about 3 days ago. She states that initially her symptoms started with a feeling of bloating and gas in her abdomen. She states that she had some mild discomfort in the right lower quadrant and then had some loose stools. The patient states that she had no further loose stools or diarrhea but then became nauseated. She states that she is not really been able to keep anything down the last 2 days because of nausea and vomiting. She states that she has been drinking plenty of fluid but has not been able to eat anything solid. She states that she did try to have some soup last night but vomited that up. She denies any fevers or chills. She denies any sick contacts. She denies eating any spoiled food. Aside from the discomfort in her right lower quadrant she states that she is not really have any abdominal pain. She does admit to continued bloating and gas. She denies any black or bloody stools. She denies any hematemesis. She states that along with not being able to eat the last few day she is also feeling weak. She did state that she noticed that yesterday evening she was a little short of breath when walking around. She denies any PND, orthopnea or increased lower extremity swelling. Patient denies any headaches, blurred vision, runny nose, sore throat, nasal congestion, difficulty swallowing, chest pain, palpitations, dysuria, increased urinary urgency, increased urinary frequency, polyuria, polydipsia, constipation, muscle aches, joint pains, joint swelling, back pain, neck stiffness, recent unintentional weight loss, dizziness, lightheadedness, night sweats or any focal neurologic deficits. On presentation to the emergency department the patient was afebrile and vital signs were all within normal limits. The patient underwent routine lab work which did reveal a mild lymphopenia, significant hypokalemia with a potassium of 2.7, negative troponin, BNP of 331 and a mildly elevated glucose of 123. The patient's urine analysis had moderate squamous cells and was not a very good sample. The patient did undergo imaging with a chest x-ray which revealed cardiomegaly and findings suspicious for pulmonary edema but no focal infiltrates. The patient also underwent a CT of her abdomen and pelvis which revealed small bilateral pleural effusions with adjacent atelectasis, enhancement in right liver compared to prior exam concerning for possible liver cysts. The emergency room physician gave the patient a dose of IV Lasix due to the possible pulmonary edema seen on chest x-ray and mildly elevated BNP. The patient was also given IV potassium replacement in the emergency department. The patient was trialed with some fluid in the emergency department but was nauseated and vomited. Given her inability to tolerate oral intake and continued nausea with hypokalemia the patient was placed in observation for furt her hydration and potassium replacement. - HOSPITAL COURSE Hospital Course: Patient was placed in observation for hydration and potassium replacement. The patient tolerated fluids and potassium replacement well. Following morning the patient was able to eat breakfast without any difficulties and no longer had any nausea or vomiting. The patient was treated with a GI cocktail while she was hospitalized. It appeared that the patient likely had gastritis which was causing her symptoms. The patient also underwent an echocardiogram which showed some mild right-sided heart failure but overall she had a good ejection fraction and for her age her echo looked quite good. The patient was discharged home with some oral Zofran as needed. She will follow-up with her primary care physician if needed but was feeling much improved and stable at discharge. - ALLERGIES Allergies/Adverse Reactions: Allergies Allergy/AdvReac Type Severity Reaction Status Date / Time amoxicillin trihydrate * Allergy Severe Cramps Verified 03/04/18 08:54 [From Augmentin] potassium clavulanate * Allergy Severe Cramps Verified 03/04/18 08:54 [From Augmentin] - MEDICATIONS Home Medications: Ambulatory Orders Medication Instructions Recorded Confirmed Alendronate [Fosamax] 70 mg PO Q7D 08/31/12 04/27/15 Atenolol 50 mg PO DAILY 08/31/12 03/05/18 Estradiol [Estrace] 1 mg PO DAILY 08/31/12 04/27/16 Levothyroxine [Synthroid] 75 mcg ORAL DAILY 08/31/12 03/05/18 Simvastatin [Zocor] 20 mg PO DAILY 08/31/12 03/05/18 Amlodipine Besylate 5 mg PO BID 06/20/13 03/05/18 Buspirone HCl 7.5 mg PO DAILY 06/20/13 03/05/18 PARoxetine [Paxil] 20 mg PO BID 06/20/13 03/05/18 Famotidine [Pepcid] 1 tab PO DAILY 04/27/15 04/27/16 Furosemide [Lasix] 1 tab PO DAILY 04/27/15 03/05/18 Montelukast [Singulair] 1 tab PO DAILY 04/27/15 04/27/16 Potassium Chloride 1 tab PO DAILY 04/27/15 04/27/16 Warfarin [Coumadin] 5 mg PO QPM 04/27/15 03/05/18 Erythromycin Base [Erythromycin] 500 mg PO TID #9 tablet 04/27/17 Ondansetron Odt [Zofran] 4 mg TL Q6H PRN #20 tablet 03/05/18 - PHYSICAL EXAM AT DISCHARGE General Appearance: positive: No acute distress, Alert Eyes Bilateral: positive: Normal inspection, PERRL, EOMI, No lid inflammation, Conjunctivae nml, No scleral icterus ENT: positive: ENT inspection nml, Pharynx nml, No signs of dehydration. negative: Purulent nasal drainage, Pharyngeal erythema, Oral lesions Neck: positive: Nml inspection, Thyroid nml, No JVD, Trachea midline. negative: Lymphadenopathy (R), Lymphadenopathy (L), Stiff neck, Carotid bruit, Tracheal deviation Respiratory: positive: Chest non-tender, No respiratory distress, Breath sounds nml. negative: Wheezes, Rales, Rhonchi Cardiovascular: positive: No murmur, No gallop, Irregularly irregular Peripheral Pulses: positive: 2+ Abdomen: positive: Non-tender, No organomegaly, Nml bowel sounds, No distention Back: positive: Nml inspection. negative: CVA tenderness (R), CVA tenderness (L) Skin: positive: Color nml, No rash, Warm. negative: Diaphoresis, Pallor, Skin rash Extremities: positive: Non-tender, Full ROM, Nml appearance, No pedal edema Neurologic/Psychiatric: positive: Oriented x3, CN's nml (2-12), Motor nml, Sensation nml, Mood/affect nml - LABS Result Diagrams: 03/05/18 05:56 03/05/18 05:56 Other Lab Results: Initial Screening 1. Feeling overwhelmed by the demands of living with diabete 2. Feeling that I am often failing with my diabetes routine. Initial Screening Score Initial Diabetes Distress Score Thorough Screening Screening Type 1. Feeling that diabetes is taking up too much of my mental 2. Feeling that my doctor doesn't know enough about diabetes 3. Feeling angry, scared, and/ or depressed when I think abou 4. Feeling that my doctor doesn't give me clear enough direc 5. Feeling that I am not testing my blood sugars frequently 6. Feeling that I am often failing with my diabetes routine. 7. Feeling that friends or family are not supportive enough 8. Feeling that diabetes controls my life. 9. Feeling that my doctor doesn't take my concerns seriously 10. Not feeling confident in my day-today ability to manage 11. Feeling that I will end up with serious long-term compli 12. Feeling that I am not sticking closely enough to a good 13. Feeling that friends or family dont appreciate how diffi 14. Feeling overwhelmed by the demands of living with diabet 15. Feeling that I don't have a doctor who can see regularly 16. Not feeling motivated to keep up my diabetes self manage 17. Feeling that friends or family don't give me the emotion Thorough Screening Scores Total DDS Score a. Sum of 17 item scores. b. Divide by 17. c Mean item score (equal or greater than 3 - inquire further). A. Emotional [place] a. Sum of 5 items (1, 3, 8, 11, 14). b. Divide by 5. c. Mean item score (equal or greater than 3 - inquire further). B. Physician-Related Distress a. Sum of 4 items (2,4,9,15). b. Divide by 4. c. Mean item score (equal or greater than 3 - inquire further). C. Regimen-related Distress a. Sum of 5 items (5,6,10,12, 16). b. Divide by 5. c. Mean item score (equal or greater than 3 - inquire further). D. Interpersonal Distress a. Sum of 3 items (7,13,17). b. Divide by 3. c. Mean item score (equal or greater than 3 - inquire further). Plan Plan DDS Comments Laboratory Results WBC 6.6 x10^3/uL (4.8-10.8) 03/05/18 05:56 RBC 4.15 10^6/uL (4.20-5.40) L 03/05/18 05:56 Hgb 12.5 g/dL (12.0-16.0) 03/05/18 05:56 Hct 37.1 % (37.0-47.0) 03/05/18 05:56 MCV 89.6 fL (81.0-99.0) 03/05/18 05:56 MCH 30.1 pg (27.0-31.0) 03/05/18 05:56 MCHC 33.6 g/dL (32.0-36.0) 03/05/18 05:56 RDW 13.8 % (12.0-15.0) 03/05/18 05:56 Plt Count 227 10^3/uL (130-450) 03/05/18 05:56 MPV 7.3 fL (7.9-10.8) L 03/05/18 05:56 Neut # (Auto) 4.2 10^3/uL (1.5-6.6) 03/05/18 05:56 Lymph # (Auto) 1.3 10^3/uL (1.5-3.5) L 03/05/18 05:56 Mclean # (Auto) 0.6 10^3/uL (0.0-1.0) 03/05/18 05:56 Eos # (Auto) 0.3 10^3/uL (0.0-0.7) 03/05/18 05:56 Baso # (Auto) 0.0 10^3/uL (0.0-0.1) 03/05/18 05:56 Absolute Nucleated RBC 0.00 x10^3/uL 03/05/18 05:56 Nucleated RBC % 0.1 /100WBC 03/05/18 05:56 PT 24.1 secs (9.9-12.6) H 03/05/18 05:56 INR 2.1 (0.8-1.2) H 03/05/18 05:56 Sodium 141 mmol/L (135-145) 03/05/18 05:56 Potassium 3.0 mmol/L (3.5-5.0) L 03/05/18 05:56 Chloride 106 mmol/L (101-111) 03/05/18 05:56 Carbon Dioxide 27 mmol/L (21-32) 03/05/18 05:56 Anion Gap 8.0 (6-13) 03/05/18 05:56 BUN 11 mg/dL (6-20) 03/05/18 05:56 Creatinine 0.9 mg/dL (0.4-1.0) 03/05/18 05:56 Estimated GFR (MDRD) 59 (>89) L 03/05/18 05:56 Glucose 100 mg/dL (70-100) 03/05/18 05:56 Lactic Acid 0.8 mmol/L (0.5-2.2) 03/05/18 05:56 Calcium 8.0 mg/dL (8.5-10.3) L 03/05/18 05:56 Phosphorus 2.9 mg/dL (2.5-4.6) 03/05/18 05:56 Magnesium 1.8 mg/dL (1.7-2.8) 03/05/18 05:56 Total Bilirubin 0.5 mg/dL (0.2-1.0) 03/05/18 05:56 AST 22 IU/L (10-42) 03/05/18 05:56 ALT 14 IU/L (10-60) 03/05/18 05:56 Alkaline Phosphatase 58 IU/L (42-121) 03/05/18 05:56 Troponin I < 0.04 ng/mL (<0.49) 03/04/18 09:20 B-Natriuretic Peptide 331 pg/mL (5-100) H 03/04/18 09:20 Total Protein 6.0 g/dL (6.7-8.2) L 03/05/18 05:56 Albumin 3.4 g/dL (3.2-5.5) 03/05/18 05:56 Globulin 2.6 g/dL (2.1-4.2) 03/05/18 05:56 Albumin/Globulin Ratio 1.3 (1.0-2.2) 03/05/18 05:56 Lipase 22 U/L (22-51) 03/04/18 09:20 TSH 2.29 uIU/mL (0.34-5.60) 03/05/18 05:56 Urine Color YELLOW 03/04/18 19:45 Urine Clarity CLEAR (CLEAR) 03/04/18 19:45 Urine pH 6.5 PH (5.0-7.5) 03/04/18 19:45 Ur Specific [place] 1.010 (1.002-1.030) 03/04/18 19:45 Urine Protein NEGATIVE mg/dL (NEGATIVE) 03/04/18 19:45 Urine Glucose (UA) NEGATIVE mg/dL (NEGATIVE) 03/04/18 19:45 Urine Ketones NEGATIVE mg/dL (NEGATIVE) 03/04/18 19:45 Urine Occult Blood SMALL (NEGATIVE) H 03/04/18 19:45 Urine Nitrite NEGATIVE (NEGATIVE) 03/04/18 19:45 Urine Bilirubin NEGATIVE (NEGATIVE) 03/04/18 19:45 Urine Urobilinogen 0.2 (NORMAL) E.U./dL (NORMAL) 03/04/18 19:45 Ur Leukocyte Esterase NEGATIVE (NEGATIVE) 03/04/18 19:45 Urine RBC 0-5 /HPF (0-5) 03/04/18 19:45 Urine WBC 0-3 /HPF (0-5) 03/04/18 19:45 Ur Squamous Epith Cells RARE Squamous (<= Few) 03/04/18 19:45 Urine Bacteria None Seen /HPF (None Seen) 03/04/18 19:45 Ur Microscopic Review INDICATED 03/04/18 19:45 Urine Culture Comments NOT INDICATED 03/04/18 19:45 - DIAGNOSTIC IMAGING Diagnostic Imaging Results: Final report reviewed Diagnostic Imaging Results Comments: Chest x-ray Impression: 1. Cardiomegaly and findings suspicious for pulmonary edema. 2. No other significant interval change compared to prior study. CT abdomen/pelvis Impression: 1. There are small bilateral pleural effusions with adjacent atelectasis. 2. There is an area of enhancement in the right liver which is new compared to the prior exam, uncertain etiology but unlikely to explain the patient's symptoms. 3. Other incidental findings described above. Echocardiogram Impression: Left ventricular size is normal. The left ventricular wall thickness is normal. Overall left ventricular systolic function is normal with ejection fraction of 60-65%. Diastology and subtle regional wall motion abnormalities are difficult to assess in the presence of arrhythmia. Right ventricle is normal in size and function The left atrial volume index is normal The right atrial size is normal The aortic valve is trileaflet. Aortic valve leaflets are mildly calcified. Mild aortic stenosis with peak/mean pressure gradient of 18 mmHg / 10 mmHg, the aortic valve area by continuity equation is 1.28 cm square. There is mild aortic regurgitation. There is thickening of the mitral valve leaflets. No mitral stenosis noted. There is mild mitral regurgitation. The tricuspid valve appears structurally normal. No tricuspid stenosis. Mild tricuspid regurgitation. Mildly abnormal right heart pressures. The right ventricular systolic pressure at rest is 49 mmHg. As compared to prior echo, pulmonary arterial systolic pressure has increased from 35 to reported. The pulmonic valve is normal. Trace pulmonic regurgitation. There is no pulmonic stenosis noted. There is no pericardial effusion. The intra-atrial septum appears normal. The aortic root, ascending aorta and aortic arch diameters are normal. The pulmonary artery is normal. The inferior vena cava is normal. No mass or thrombus identified. No pleural effusion. - FOLLOW UP Follow Up: The patient was placed in observation for nausea and vomiting which was felt likely to be secondary to gastritis. The patient improved overnight with IV fluids, electrolyte replacement and GI cocktail. The patient was discharged home in stable condition. The patient ate a normal breakfast in the morning and tolerated it well. The patient was feeling much improved. The patient was advised to follow-up with her primary care physician if she continues to have symptoms. The patient was discharged home with Zofran. The patient did undergo an echocardiogram while she was hospitalized which only showed some mild right- sided dysfunction of her heart otherwise she had a normal ejection fraction. - TIME SPENT Time Spent in Discharge (Minutes): 40
[2018-03-05 11:48] VITALS: BP 118/70
== END 2018-03-05 11:35 | disposition home or self-care (01) ==
LOC: ED 08:46 → MS2 13:24
PROVIDERS: ADMIT Internal Medicine; ATTEND Internal Medicine
DX: K29.70 Gastritis, unspecified, without bleeding (principal); E87.6 Hypokalemia; I11.0 Hypertensive heart disease with heart failure; I50.9 Heart failure, unspecified; E03.9 Hypothyroidism, unspecified; E78.5 Hyperlipidemia, unspecified; I48.2 Chronic atrial fibrillation; Z79.01 Long term (current) use of anticoagulants; F32.9 Major depressive disorder, single episode, unspecified; H91.90 Unspecified hearing loss, unspecified ear; M81.0 Age-related osteoporosis without current pathological fracture; K21.9 Gastro-esophageal reflux disease without esophagitis; F41.9 Anxiety disorder, unspecified
CPT/HCPCS: 36415; 71045; 74177; 80053; 81001; 83605; 83690; 83735; 83880; 84100; 84443; 84484; 85025; 85610; 93005; 93306; 96365; 96366; 96368; 96375; 99284; 99285; A9270; G0378; Q9967; 81003; 87086

== ENCOUNTER 2018-04-23 09:59 | Outpatient (CLI) | payer MEDICARE, OTHER ==
--- NOTE | 2018-04-23 12:43 | XRAY Report ---
Reason: PAIN IN LEFT FOOT Procedure Date: 04/23/2018 Accession Number: [id number] / [id number] Procedure: XR - Foot 3 View LT CPT Code: FULL RESULT: EXAM: LEFT FOOT RADIOGRAPHY EXAM DATE: 04/23/2018 11:34 AM. CLINICAL HISTORY: Pain in left foot. COMPARISON: None. TECHNIQUE: 3 views. FINDINGS: There is a fracture at the base of the fifth metatarsal, zone 2 with a line extending towards the articulation of the fourth and fifth metatarsals. IMPRESSION: Fracture of the base of the fifth metatarsal as described. RADIA The call report notification system was initiated by Dr. Kennedy Lin at 12:41 PM on 04/23/2018. ADDENDUM: 04/23/18 13:46 The above call report findings of fracture were discussed with Kameron Land by Dr. Kennedy Lin at 01:46 PM on 04/23/2018.
== END 2018-04-23 10:00 | disposition home or self-care (01) ==
LOC: DI.N 09:59 → DI 10:00
PROVIDERS: ATTEND Internal Medicine
DX: S92.352A Displaced fracture of fifth metatarsal bone, left foot, initial encounter for closed fracture (principal)

== ENCOUNTER 2019-11-15 14:03 | Outpatient (CLI) | payer MEDICARE, OTHER ==
--- NOTE | 2019-11-15 16:28 | XRAY Report ---
PROCEDURE: Lumbar Spine Complete INDICATIONS: DORSALGIA TECHNIQUE: 5 views of the lumbar spine were acquired. COMPARISON: CT abdomen pelvis 03/04/2018 FINDINGS: Bones: 5 [id number] vertebrae are present. There is trace retrolisthesis L5 on S1 as well as L 2 on L3, L3 on L4. Mild superior endplate deformity at L5, new since 2018. Multilevel moderate to sev ere foraminal narrowing is present most notable at L3-4 through L5-S1.. No suspicious bony lesions. Soft tissues: Overlying bowel gas pattern is normal. No suspicious soft tissue calcifications. IMPRESSION: Multilevel degenerative changes as above. Reviewed by: Shanelle Jimenez MD on 11/15/2019 4:27 PM PDT Approved by: Shanelle Jimenez MD on 11/15/2019 4:27 PM PDT Station ID: [id number]
== END 2019-11-15 14:04 | disposition home or self-care (01) ==
LOC: DI 14:03
PROVIDERS: ATTEND Orthopaedic Surgery
DX: M43.16 Spondylolisthesis, lumbar region (principal); M43.17 Spondylolisthesis, lumbosacral region; M51.36 Other intervertebral disc degeneration, lumbar region; M48.061 Spinal stenosis, lumbar region without neurogenic claudication
CPT/HCPCS: 72110

== ENCOUNTER 2019-12-23 14:19 | Outpatient (CLI) | payer MEDICARE, OTHER ==
--- NOTE | 2019-12-23 15:00 | XRAY Report ---
PROCEDURE: Lumbar Spine 2 View INDICATIONS: LOWER BACK PAIN TECHNIQUE: 2 views of the lumbar spine were acquired. COMPARISON: Prior similar lumbosacral spine study 11/15/2019 reviewed. FINDINGS: Bones: 5 [id number] vertebrae are present. There is near normal bony alignment, with mild grad e 1 anterolisthesis of L4 on L5 associated with degenerative facet osteoarthritis that is moderately severe this level and also at L5-S1.. There is a suspected acute L5 vertebral body compression fractu re, given inferior angulation of the upper endplate of the L5 vertebral body on the straight lateral view, when compared to the targeted lateral view centered on L5-S1 11/15/2019. This area was better vi sualized on the prior study due to limited targeting for that image.. No suspicious bony lesions. Soft tissues: Overlying bowel gas pattern is normal. No suspicious soft tissue calcifications. IMPRESSION: A source of new pain is considered to be identified as a mild superior endplate impactio n fracture related to osteopenia, most likely. As discussed above a straight lateral view targeted on L5-S1 allowed better visualization of the same area 11/15/2019 and repeat imaging of that area could be obtained utilizing that same technique. There is a moderate degree of facet osteoarthritis from L3 inferiorly, unchanged over time. Reviewed by: Miky Israel MD on 12/23/2019 2:58 PM PDT Approved by: Miky Israel MD on 12/23/2019 2:58 PM PDT Station ID: [id number]
== END 2019-12-23 14:20 | disposition home or self-care (01) ==
LOC: DI 14:19
PROVIDERS: ATTEND Internal Medicine
DX: M54.5 Low back pain (principal); M25.50 Pain in unspecified joint; M47.816 Spondylosis without myelopathy or radiculopathy, lumbar region
CPT/HCPCS: 72100

== ENCOUNTER 2020-06-15 07:09 | Outpatient (CLI) | payer MEDICARE, OTHER ==
--- NOTE | 2020-06-15 10:58 | Ultrasound Report ---
PROCEDURE: Abdomen Complete INDICATIONS: CONSTIPATION TECHNIQUE: Real-time scanning was performed of the abdominal and retroperitoneal organs, with image documentatio n. COMPARISON: CT of abdomen and pelvis dated 01/02/2018. FINDINGS: Liver: Liver is normal in size. Mildly increased liver parenchymal echotexture is noted. 9 x 7 x 8 m m simple appearing cyst is seen in left hepatic lobe. Gallbladder: Gallbladder is surgically absent. Biliary ducts: Intrahepatic bile ducts are non-dilated. Extrahepatic bile duct caliber measures 10. 8 mm. Normal is 6-7 mm or less in diameter, or 10 mm or less post-cholecystectomy. Pancreas: 1.2 x 1.2 x 1.1 cm hypoechoic area involving head/uncinate process of pancreas is seen with out internal vascularity. Spleen: Spleen is normal in size and homogeneous in echotexture. Kidneys: Kidneys are normal in size and echotexture. Right kidney measures 9.5 cm long; left kidney measures 9.6 cm long. No hydronephrosis or nephrolithiasis. No solid masses. 1.3 x 1 x 1.2 cm upp er pole right renal cyst is seen. Multiple left renal cysts are noted measures up to 1.1 x 1 x 0.8 cm in mid pole of left kidney. Aorta: Visualized aorta is normal in caliber at less than 3 cm. Calcified plaques are noted througho ut abdominal aorta. Iliacs: Proximal common iliac arteries are normal in caliber at less than 2.5 cm. IVC: Intrahepatic inferior vena cava is patent. Miscellaneous: No free abdominal fluid. IMPRESSION: 1. Prior cholecystectomy. Stable borderline dilated common bile duct unchanged in size compared to 20 18 study. No evidence of choledocholithiasis. 2. Very mild hepatic steatosis with suggestion of simple cyst in left hepatic lobe which was also see n on previous CT study. 3. Small hypoechoic area involving uncinate process/head of pancreas without internal vascularity and may represent IPMN. MRI of abdomen can be done for further evaluation of this area if clinically ind icated. Smaller hypodense areas are seen on previous CT study in 2018 and measures 7 x 9 mm in size C T series 3 image 25. Reviewed by: Korey Awad MD on 06/15/2020 9:57 AM AKDT Approved by: Korey Awad MD on 06/15/2020 9:57 AM AKDT Station ID: [id number]
== END 2020-06-15 07:10 | disposition home or self-care (01) ==
LOC: DI 07:09
PROVIDERS: ATTEND Internal Medicine
DX: Z90.49 Acquired absence of other specified parts of digestive tract (principal); K76.0 Fatty (change of) liver, not elsewhere classified; R93.3 Abnormal findings on diagnostic imaging of other parts of digestive tract; M85.89 Other specified disorders of bone density and structure, multiple sites; M43.16 Spondylolisthesis, lumbar region; M47.816 Spondylosis without myelopathy or radiculopathy, lumbar region; R93.7 Abnormal findings on diagnostic imaging of other parts of musculoskeletal system

== ENCOUNTER 2020-06-15 07:12 | Outpatient (CLI) | payer MEDICARE, OTHER ==
--- NOTE | 2020-06-16 12:24 | Mammography Report ---
BILATERAL DIGITAL SCREENING MAMMOGRAM 3D/2D: 06/15/2020 CLINICAL: Routine screening. Comparison is made to exams dated: 07/28/2016 mammogram and 06/05/2015 mammogram - [facility]. There are scattered fibroglandular elements in both breasts. No significant masses, calcifications, or other findings are seen in either breast. There has been no significant interval change. IMPRESSION: NEGATIVE There is no mammographic evidence of malignancy. A 1 year screening mammogram is recommended. This exam was interpreted at Station ID: [id number]. NOTE: For mammograms, a report in lay terms will be sent to the patient. Approximately 15% of breast malignancies will not be visualized mammographically. In the management of a palpable breast mass, a negative mammogram must not discourage biopsy of a clinically suspicious lesion. Electronically Signed By: Curt Soni M.D. ar/penrad:06/15/2020 10:44:44 ACR BI-RADS Category 1: Negative 3341F PARENCHYMAL PATTERN: (A) - The breast(s) demonstrate(s) scattered fibroglandular densities. BI-RADS CATEGORY: (1) - 1 RECOMMENDATION: (ANNUAL) - Recommend routine annual screening mammography. [id number] 1 year screening LATERALITY: (B)
== END 2020-06-15 07:13 | disposition home or self-care (01) ==
LOC: DI 07:12
PROVIDERS: ATTEND Internal Medicine
DX: Z12.31 Encounter for screening mammogram for malignant neoplasm of breast (principal)

== ENCOUNTER 2020-06-15 07:14 | Outpatient (CLI) | payer MEDICARE, OTHER ==
--- NOTE | 2020-06-16 08:59 | DEXA Report ---
PROCEDURE: Dexa Spine and/or Hip INDICATIONS: DISORDER OF BONE TECHNIQUE: Dual energy x-ray absorptiometry (DXA) was performed on a [employer]. Regions measur ed are the AP Spine, femoral neck, and if needed forearm. COMPARISON: 07/28/2016. FINDINGS: Lumbar Spine: Bone Mineral Density 1.043 g/cm/cm,T score -1.1, there is interval 30% decrease in the lumbar spin e bone mineral density. Left Hip: Bone Mineral Density 0.733 g/cm/cm,T score -2.2, there is interval 16% decrease in total left hip anjali ne mineral density. Left Femoral Neck: Bone Mineral Density 0.745 g/cm/cm, T score -2.1, (T score greater or equal to -1.0: NORMAL) (T score from -1.1 to -2.4: OSTEOPENIA) (T score less than or equal to -2.5 to: OSTEOPOROSIS) Impression: Osteopenia. Patients with diagnosis of osteoporosis or osteopenia should have regular bone mineral density assess ment. For those eligible for Medicare, routine testing is allowed once every 2 years. Testing frequ ency can be increased for patients who have rapidly progressing disease or for those who are receivin g medical therapy to restore bone mass. Reviewed by: Korey Awad MD on 06/15/2020 8:31 AM SHARON Approved by: Korey Awad MD on 06/15/2020 8:31 AM SHARON Station ID: [id number]
--- NOTE | 2020-06-16 08:59 | XRAY Report ---
PROCEDURE: Lumbar Spine 2 View INDICATIONS: LBP TECHNIQUE: 2 views of the lumbar spine were acquired. COMPARISON: 11/15/2019 and 12/23/2019. FINDINGS: Bones: 5 [id number] vertebrae are present. There is grade 1 anterolisthesis of L4 on L5. Anter ior wedge compression deformity at L5 level is noted new since 12/23/2019 study with up to 30% loss o f L5 vertebral body anteriorly. Minimal retrolisthesis of L2 on L3 is also seen. No other vertebral b trent compression fractures. Degenerative endplate changes throughout lumbar spine is seen. No suspici ous bony lesions. Soft tissues: Overlying bowel gas pattern is normal. No suspicious soft tissue calcifications. IMPRESSION: Age-indeterminate anterior wedge compression deformity at L5 level which is new since study. Grade 1 anterolisthesis of L4 on L5. Minimal retrolisthesis of L2 on L3. Degenerative disc disease throughout lumbar spine. Findings were reported to [facility] is office at 9:25 AM [facility] on 06/15/2020. Reviewed by: Korey Awad MD on 06/15/2020 8:29 AM AKDT Approved by: Korey Awad MD on 06/15/2020 8:29 AM AKDT Station ID: [id number]
== END 2020-06-15 07:15 | disposition home or self-care (01) ==
LOC: DI 07:14
PROVIDERS: ATTEND Internal Medicine
DX: M85.89 Other specified disorders of bone density and structure, multiple sites (principal); M43.16 Spondylolisthesis, lumbar region; M47.816 Spondylosis without myelopathy or radiculopathy, lumbar region; R93.7 Abnormal findings on diagnostic imaging of other parts of musculoskeletal system

== ENCOUNTER 2020-07-27 08:25 | Outpatient (CLI) | payer MEDICARE, OTHER ==
[2020-07-27] MEDS ORDERED: GADOBUTROL 10 MMOL/10 ML VIAL ONE (08:48)
[2020-07-27 08:59] LABS: CREATININE 1.1 mg/dL (0.4-1.0)
[2020-07-27] MEDS ORDERED: GADOBUTROL 10 MMOL/10 ML VIAL IVP ONE (10:16)
--- NOTE | 2020-07-27 10:42 | MRI Report ---
PROCEDURE: Lumbar Spine W/O INDICATIONS: LBP TECHNIQUE: Noncontrast sagittal T1 spin echo and T2 fast echo, sagittal STIR, axial T1 and T2 fast spin echo thr ough the lumbar spine. In cases with scoliosis, additional coronal T2 fast spin echo may be performe d. COMPARISON: Lumbar spine plain films dated 06/15/2020. FINDINGS: Image quality: Excellent. Alignment and Curvature: 5 lumbar type vertebral bodies are present by plain film. There is mild grad e 1 retrolisthesis of L2 on L3 and L3 on L4. Mild grade 1 anterolisthesis of L4 on L5. Bone Marrow: Marrow is of normal overall signal. No acute vertebral body compression fractures. Mo derate chronic L1 wedging. Mild reactive signal within the endplates adjacent to the L1-L2, L2-L3, L3 -L4, and L4-L5 intervertebral discs. Spinal Cord: Conus medullaris terminates at the L1-L2 disc space level. Visualized cord demonstrate s normal signal and size. Paraspinous Soft Tissues: No paravertebral masses. Mild dependent edema within the posterior subcut aneous fat at L2-S1. T12-L1: Mild disc desiccation. No significant canal, nor foraminal stenosis. L1-L2: Mild disc desiccation and diffuse disc bulge. Mild facet and ligament flavum hypertrophy. M ild canal stenosis. Mild bilateral foraminal stenosis. L2-L3: Mild disc height loss and desiccation. Mild diffuse disc bulge. Mild facet and ligament fla vum hypertrophy. Mild canal stenosis. Mild bilateral foraminal stenosis. L3-L4: Moderate disc height loss and desiccation. Mild diffuse disc bulge. Mild facet and ligament flavum hypertrophy. Mild canal stenosis. Mild bilateral foraminal stenosis. L4-L5: Mild disc height loss. Moderate disc desiccation. Mild diffuse disc bulge. Moderate facet an d ligament flavum hypertrophy. Mild canal stenosis. Mild bilateral foraminal stenosis. L5-S1: Moderate disc desiccation. Mild disc height loss and diffuse disc bulge. Mild facet and liga ment flavum hypertrophy. Mild canal stenosis. Mild bilateral foraminal stenosis. IMPRESSION: 1. Multilevel degenerative disc and facet disease, in addition to epidural lipomatosis and ligamentum flavum hypertrophy. 2. Mild multilevel canal and foraminal stenoses. No neural impingement. 3. Moderate chronic L5 compression fracture. No evidence of acute fracture. Reviewed by: Valeriy Bobby MD on 07/27/2020 10:40 AM PDT Approved by: Valeriy Bobby MD on 07/27/2020 10:40 AM PDT Station ID: [id number]
--- NOTE | 2020-07-27 12:12 | MRI Report ---
PROCEDURE: Abdomen W/WO INDICATIONS: LIVER DISEASE CONTRAST: IV CONTRAST: Gadavist ml: 7.2 TECHNIQUE: Coronal ultra fast SE, axial 2D spoiled GE in- and [id number]; axial breath-hold T2 fast SE. Dynam ic axial ultra fast GE during the administration of contrast; post-contrast coronal ultra fast GE or 2D spoiled GE with fat saturation from the hepatic dome to the iliac crests. Optional diffusion weig hted imaging and ADC may be performed. COMPARISON: CT abdomen pelvis 03/04/2018 and ultrasound of the abdomen 06/15/2020 FINDINGS: Image quality: Excellent. Lung bases: No basal pleural effusions. Heart size is enlarged. Solid organs: Liver demonstrates normal signal without significant steatosis. There is a lentiform s haped lesion in segment VIII at the liver dome on the arterial phase only measuring about 3.0 cm in t ransverse diameter, and likely extending cranially from the hepatic arterial branch. There is no wash out on venous or delayed phase imaging and this lesion becomes isointense enhancing with hepatic pare nchyma. More caudally in the central aspect of VIII, there is a simple nonenhancing cyst measuring 6 mm. The spleen is normal in size and enhancement. Gallbladder is surgically absent. The common bile duct today measures 1.0 cm in greatest diameter.. No adrenal nodules. Both kidneys demonstrate normal s ize and enhancement, without hydronephrosis. There are small simple and proteinaceous cysts in each kidney. The pancreas contains a cystic mass measuring 1.2 x 1.1 cm in the ventral aspect of the pancreatic he ad within nondilated sidebranch connection to the ductal system. There are questionable thin, minimal ly enhancing internal septations. The main pancreatic duct is nondilated. There are no other pancreat ic masses or cysts. Nodes and vessels: No retroperitoneal or mesenteric adenopathy by size criteria. Aorta and inferior vena cava are normal in size. Bowel and peritoneum: Unenhanced bowel loops are normal in caliber. No free fluid. Bones and soft tissues: No ventral hernias. Bone marrow is normal in overall signal. IMPRESSION: 1. 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 Continued annual surveillance is recommended. 2. 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 3. No other suspicious findings in the liver. 4. Post cholecystectomy with common duct at the upper limits of normal in diameter. Reviewed by: Kinga Levy MD on 07/27/2020 12:10 PM PDT Approved by: Kinga Levy MD on 07/27/2020 12:10 PM PDT Station ID: [id number]
== END 2020-07-27 08:26 | disposition home or self-care (01) ==
LOC: LAB 08:25
PROVIDERS: ATTEND Internal Medicine
DX: M48.56XD Collapsed vertebra, not elsewhere classified, lumbar region, subsequent encounter for fracture with routine healing (principal); M43.16 Spondylolisthesis, lumbar region; M47.816 Spondylosis without myelopathy or radiculopathy, lumbar region; M51.36 Other intervertebral disc degeneration, lumbar region; M48.061 Spinal stenosis, lumbar region without neurogenic claudication; M47.817 Spondylosis without myelopathy or radiculopathy, lumbosacral region; M51.37 Other intervertebral disc degeneration, lumbosacral region; M48.07 Spinal stenosis, lumbosacral region; K86.89 Other specified diseases of pancreas; Z90.49 Acquired absence of other specified parts of digestive tract; K76.89 Other specified diseases of liver
CPT/HCPCS: 36415; 72148; 74183; 82565; A9585

== ENCOUNTER 2020-08-24 17:00 | Outpatient (CLI) | payer MEDICARE, OTHER ==
[2020-08-24 17:26] LABS: BASOPHILS % (AUTO) 0.3 %; EOSINOPHILS # (AUTO) 0.3 10^3/uL (0.0-0.7); EOSINOPHILS % (AUTO) 2.4 %; HCT - HEMATOCRIT 39.6 % (37.0-47.0); HGB - HEMOGLOBIN 13.2 g/dL (12.0-16.0); LYMPHOCYTES # (AUTO) 1.6 10^3/uL (1.5-3.5); LYMPHOCYTES % (AUTO) 15.2 %; MEAN CORPUSCULAR HEMOGLOBIN 29.9 pg (27.0-31.0); MEAN CORPUSCULAR HGB CONC 33.3 g/dL (32.0-36.0); MEAN CORPUSCULAR VOLUME 89.8 fL (81.0-99.0); MEAN PLATELET VOLUME 9.3 fL (7.9-10.8); MONOCYTES % (AUTO) 9.3 %; NEUTROPHILS # (AUTO) 7.7 10^3/uL (1.5-6.6); NEUTROPHILS % (AUTO) 72.5 %; PLT - PLATELET COUNT 176 10^3/uL (130-450); RED BLOOD COUNT 4.41 10^6/uL (4.20-5.40); RED CELL DISTRIBUTION WIDTH 14.1 % (12.0-15.0); WHITE BLOOD COUNT 10.6 x10^3/uL (4.8-10.8)
[2020-08-24 17:39] LABS: ALBUMIN 4.5 g/dL (3.2-5.5); ALBUMIN/GLOBULIN RATIO 1.6 (1.0-2.2); BILIRUBIN,TOTAL 1.6 mg/dL (0.2-1.0); CALCIUM 9.2 mg/dL (8.5-10.3); CREATININE 1.2 mg/dL (0.4-1.0); POTASSIUM 3.6 mmol/L (3.5-5.0); TOTAL PROTEIN 7.4 g/dL (6.7-8.2)
== END 2020-08-24 17:01 | disposition home or self-care (01) ==
LOC: LAB 17:00
PROVIDERS: ATTEND Family Medicine
DX: I10 Essential (primary) hypertension (principal); Z79.899 Other long term (current) drug therapy; E87.6 Hypokalemia; I48.91 Unspecified atrial fibrillation; R60.0 Localized edema; E03.9 Hypothyroidism, unspecified
CPT/HCPCS: 36415; 80053; 85025; 85610